=== PATIENT | male | born 1995 | race Caucasian/White ===

== ENCOUNTER 2018-07-11 11:28 | Emergency (ER) | payer SELFPAY ==
--- NOTE | 2018-07-11 11:21 | EDPHY ---
H & P Time Seen by Provider: 07/11/18 11:44 Constitutional: Initial Vital Signs Temperature (C) 36.7 C 07/11/18 11:38 Heart Rate 76 07/11/18 11:38 Respiratory Rate 18 07/11/18 11:38 Blood Pressure 140/76 H 07/11/18 11:38 O2 Sat (%) 97 07/11/18 11:38 O2 Delivery Mode Room Air Allergies/Adverse Reactions: No Known Allergies Allergy (Unverified 07/11/18 11:42) Home Medications: Medication Instructions Recorded NK [No Known Home Meds] 07/11/18 Medical Decision Making - Diagnostics Imaging Results: Imaging Impressions Brain MRI 07/11/18 11:52 Impression: 1. Mild sinus disease. 2. No acute infarct, acute hemorrhage, hydrocephalus or mass effect. 3. No enhancing lesions or definite mesial temporal sclerosis. Findings and recommendations discussed with Emergency Department physician, Dr. Victor M Thomas at 1340 hours on July 11, 2018. Final report concurs with initial preliminary interpretation. Imaging: Discussed imaging studies w/ call manager Radiologist, I viewed and interpreted images myself ED Course/Re-evaluation: CHIEF COMPLAINT: Seizure HISTORY OF PRESENT ILLNESS: The patient is a 23 y/o male arriving via EMS for a witnessed seizure today. The patient reports that as a child he had several febrile seizures. For several weeks he has had episodic dizziness. Today he was standing up playing a video game, when his girlfriend heard him fall to the ground and subsequently had two episodes of low-amplitude imaging that was worse in the beginning. The episodes were by a 10-15 second pause in activity. His girlfriend believes that the patient fell backwards. She denies any blue color to the patient's skin or lips. He did not bite his tongue or have urinary incontinence. The patient was then unconscious for around 5 minutes. The last thing that he remembers is looking at the TV screen and the first thing he remembers is the paramedics. He does not have any recollection of the event and did not have a feeling like he was about to lose unconsciousness prior the events. Due to the patient's possible seizure he was brought to the emergency department. He reports that he feels normal now. No fever, headache, body aches , lightheadedness, chest pain, heart palpitations, shortness of breath, cough, abdominal pain, urinary or bowel complaints, numbness, paresthesias. REVIEW OF SYSTEMS: A comprehensive 10 system review of systems is otherwise negative aside from elements mentioned in the history of present illness and medical decision making. PHYSICAL EXAM: HR, BP, O2 Sat, RR. Temp noted General Appearance: Alert, well hydrated, appropriate, and non-toxic appearing. Head: Atraumatic without scalp tenderness or obvious injury Eyes: Pupils equal, round, reactive to light and accommodation, EOMI, no trauma , no injection. Ears: Clear bilaterally, no perforation, normal landmarks Nose: Atraumatic, no rhinorrhea, clear. Throat: There is no erythema or exudates, no lesions, normal tonsils, mucus membranes moist. Neck: Supple, 2+ carotid upstroke, nontender, no lymphadenopathy. Respiratory: No retractions, no distress, no wheezes, and no accessory muscle use. Lungs are clear to auscultation bilaterally. Cardiovascular: Regular rate and rhythm, no murmurs, rubs, or gallops. Bilateral carotid, radial, dorsalis pedis, and posterior tibial pulses intact. Good capillary refill all extremities. Gastrointestinal: Abdomen is soft, nontender, non-distended, no masses, no rebound, no guarding, no peritoneal signs. Musculoskeletal: Normal active ROM of all extremities, atraumatic. Neurological: Alert, appropriate, and interactive. The patient has normal DTRs and non-focal cranial nerves, motor, sensory, and cerebellar exam. Skin: No rashes, good turgor, no nodules on palpation. Past medical history: Febrile seizures Past surgical history: Right shoulder surgery Family history: Denies Social history: Girlfriend at bedside, lives and works in [place] DIAGNOSTICS/PROCEDURES/CRITICAL CARE TIME: EKG: The 12 lead EKG was interpreted by myself as sinus rhythm with a rate of 88. See hard copy and/or "tracemaster" electronic copy for interpretation. Brain MRI: Mild sinus disease. No acute infarct, acute hemorrhage, hydrocephalus or mass effect. No enhancing lesions or definite mesial temporal sclerosis. Echo: No acute findings. DIFFERENTIAL DIAGNOSIS: The differential diagnosis for the patient's seizure included but was not limited to anoxic seizure, electrolyte abnormality, alcohol withdrawal, medication noncompliance, head injury, STORE CLERK structural abnormality, and break through seizure. MEDICAL DECISION MAKING: The patient is a 23 y/o male arriving via EMS for a witnessed seizure today.Today he was standing up playing a video game, when his girlfriend heard him fall to the ground and subsequently had two episodes of low-amplitude imaging that was worse in the beginning. The episodes were by a 10-15 second pause in activity. She denies any blue color to the patient's skin or lips. He did not bite his tongue or have urinary incontinence. The patient was then unconscious for around 5 minutes. He does not have any recollection of the event and did not have a feeling like he was about to lose unconsciousness prior the events. Patient will need a first-time seizure work up and a cardiac workup due to the possible syncope. Labs, EKG, echocardiogram, and brain MRI ordered; 1L IV NS administered. 1138: I interpreted patient's EKG as sinus rhythm with a rate of 88. 1239: Patient's labs reveal an anion gap, I suspect he did have a seizure due to these labs results. 1340: I spoke with Dr. Storey, radiologist, regarding patient's brain MRI. There are no acute findings. We are still waiting on the echo. 1412: I spoke with the wastewater technician who reports there are no acute findings. I have paged neurology as I suspect this patient had a first time seizure. 1413: Reassessed patient and discussed laboratory and imaging studies. I have discussed my suspicion that he had a first time seizure. I have also discussed plan for follow up with a neurologist, which he is comfortable with. 1415: I consulted with Dr. Calvin, neurologist, regarding this patient. There is no utility in being admitted at this time. He agrees to see this patient as an outpatient in his office. Patient can start seizure prophylaxis if he would like. 1419: Reassessed patient and discussed seizure prophylaxis medication. He does not want to start seizure medication. I have also discussed no driving or operating heavy machinery until he sees a neurologist. Return precautions provided; patient is comfortable with this plan. - Data Points Laboratory Results: Laboratory Results 07/11/18 11:42 07/11/18 11:42 07/11/18 07/11/18 07/11/18 11:57 11:42 11:42 WBC RBC Hgb Hct MCV MCH MCHC RDW Plt Count MPV Neut % (Auto) Lymph % (Auto) [place] % (Auto) Eos % (Auto) Baso % (Auto) Nucleat RBC Rel Count Absolute Neuts (auto) Absolute Lymphs (auto) Absolute Monos (auto) Absolute Eos (auto) Absolute Basos (auto) Absolute Nucleated RBC Immature Gran % Immature Gran # D-Dimer 0.39 ug/mLFEU ug/mLFEU (0.00-0.50) Sodium 142 mEq/L mEq/L (135-145) Potassium 4.8 mEq/L mEq/L (3.5-5.2) Chloride 107 mEq/L mEq/L (97-110) Carbon Dioxide 18 mEq/l L mEq/l (22-31) Anion Gap 17 mEq/L H mEq/L (6-14) BUN 12 mg/dL mg/dL (7-23) Creatinine 1.0 mg/dL mg/dL (0.7-1.3) Estimated GFR > 60 Glucose 108 mg/dL H mg/dL (70-100) Calcium 9.6 mg/dL mg/dL (8.5-10.4) POC Troponin I 0.01 ng/mL ng/mL (0.00-0.08) 07/11/18 11:42 WBC 8.27 10^3/uL 10^3/uL (3.80-9.50) RBC 5.00 10^6/uL 10^6/uL (4.40-6.38) Hgb 16.3 g/dL g/dL (13.7-17.5) Hct 47.9 % % (40.0-51.0) MCV 95.8 fL fL (81.5-99.8) MCH 32.6 pg pg (27.9-34.1) MCHC 34.0 g/dL g/dL (32.4-36.7) RDW 12.7 % % (11.5-15.2) Plt Count 297 10^3/uL 10^3/uL (150-400) MPV 10.3 fL fL (8.7-11.7) Neut % (Auto) 51.2 % % (39.3-74.2) Lymph % (Auto) 33.5 % % (15.0-45.0) [place] % (Auto) 11.0 % % (4.5-13.0) Eos % (Auto) 2.1 % % (0.6-7.6) Baso % (Auto) 1.1 % % (0.3-1.7) Nucleat RBC Rel Count 0.0 % % (0.0-0.2) Absolute Neuts (auto) 4.24 10^3/uL 10^3/uL (1.70-6.50) Absolute Lymphs (auto) 2.77 10^3/uL 10^3/uL (1.00-3.00) Absolute Monos (auto) 0.91 10^3/uL H 10^3/uL (0.30-0.80) Absolute Eos (auto) 0.17 10^3/uL 10^3/uL (0.03-0.40) Absolute Basos (auto) 0.09 10^3/uL 10^3/uL (0.02-0.10) Absolute Nucleated RBC 0.00 10^3/uL 10^3/uL (0-0.01) Immature Gran % 1.1 % % (0.0-1.1) Immature Gran # 0.09 10^3/uL 10^3/uL (0.00-0.10) D-Dimer Sodium Potassium Chloride Carbon Dioxide Anion Gap BUN Creatinine Estimated GFR Glucose Calcium POC Troponin I Medications Given: Discontinued Medications Sodium Chloride (Ns) 1,000 mls @ 0 mls/hr IV EDNOW ONE; Wide Open PRN Reason: Protocol Stop: 07/11/18 11:51 Last Admin: 07/11/18 12:00 Dose: 1,000 mls Point of Care Test Results: Chemistry 07/11/18 11:57 POC Troponin I 0.01 ng/mL ng/mL (0.00-0.08) Departure - Departure Disposition: Home, Routine, Self-Care Clinical Impression: Seizure Condition: Good Instructions: Nonepileptic Seizures (ED) Additional Instructions: 1. Do not drive until you have seen a neurologist. Do not operate any heavy machinery until you are seen by the neurologist. 2. Follow-up with a neurologist within 72 hours. Please call them today. 3. Return to the Emergency Department for severe headache, vomiting, vision changes, confusion, fever or other concerns. Referrals: Omer Calvin MD [Medical Doctor] - As per Instructions
[2018-07-11] MEDS ORDERED: NS 1,000 ML IV ONE (11:50)
[2018-07-11 11:57] LABS: PLATELET COUNT 297 10^3/uL (150-400)
[2018-07-11] MEDS ORDERED: GADOBUTROL 10 ML VIAL IVP ONE (12:31)
[2018-07-11 14:37] VITALS: BP 132/75
--- NOTE | 2018-07-11 14:37 | CPEKG ---
Test Reason : OPEN Blood Pressure : / mmHG Vent. Rate : 088 BPM Atrial Rate : 089 BPM P-R Int : 141 ms QRS Dur : 086 ms QT Int : 379 ms P-R-T Axes : -30 060 031 degrees QTc Int : 459 ms Sinus rhythm Confirmed by Victor M Thomas ([id number]) on 07/11/2018 2:36:37 PM Referred By: Victor M Thomas Confirmed By:Victor M Thomas
--- NOTE | 2018-07-11 18:15 | ECHO ---
[email or web address] [id number] Main: [phone] Echocardiography Examination Transthoracic Name: CARI GIBBONS MR#: [id number] Study Date: 07/11/2018 Study Time: 01:54 PM Date of : 1995 Age: 23 year(s) Height: 170.2 cm (67 in.) Weight: 74.84 kg (165 lb.) BSA: 1.86 m2 Gender: Male Examination: Echo Contrast: Image Quality: Adequate Rhythm: Heart Rate: BP: 126 mmHg/75 mmHg Indication: Seizure Procedure Staff Referring Physician: Chief Service Dispatcher: Magali Carter RDCS Reading Physician: Avel Pham MD Requesting Provider: Indication: Seizure Measurements Chambers AV/MV Label Value Normal Value Label Value Normal Value LVDd, 2D 5 cm (4.2cm - 5.9cm) AV PGmax 7 mmHg LVDs, 2D 3 cm (2.1cm - 4cm) AV PGmean 3 mmHg IVSd, 2D 1 cm (0.6cm - 1.1cm) AV Vmax 1.28 m/s LVPWd, 2D 0.9 cm (0.6cm - 1cm) MV E Vmax 1.05 m/s LVEF, BP 74 % (55% - 70%) MV A Vmax 0.52 m/s LVEF, 2D 70 % (54% - 74%) MV E/A 2.02 TAPSE 2.75 cm MV E/E' lateral 6.2 LADs, 2D 3.2 cm (3cm - 4cm) MV E/E' septal 8.8 (0.6 - 2.6) Additional Vessels MV E' septal 0.12 m/s Label Value Normal Value MV E' lateral 0.17 m/s AoAsc 3 cm MV E/E' mean 7.24 AoRoot, MM 3.3 cm (2.2cm - 3.7cm) MV E' mean 0.14 m/s Conclusions Normal echocardiographic study. Findings Patient: CARI GIBBONS Study Date: 07/11/2018 Page 1 of 2 01:54 PM Left Ventricle: Left ventricle is normal in size. Normal global systolic left ventricular function. The ejection fraction, measured by Simpsons method, is 74 %. EF range is estimated at 65 % - 70 %. Left ventricle wall thickness is normal. There are no regional wall motion abnormalities. Left ventricular diastolic function parameters are normal. IVS: The septum is intact. Right Ventricle: Normal size right ventricle. Right ventricular wall thickness is normal. Right ventricular systolic function is normal. Left Atrium: The left atrium is normal in size. IAS: Normal appearing atrial septum. Right Atrium: The right atrium is normal in size. Mitral Valve: Mitral valve appears structurally normal. Trivial mitral regurgitation. No mitral valve stenosis. Aortic Valve: Aortic leaflets exhibit normal cuspal separation. No aortic valve regurgitation. There is no aortic stenosis. The aortic valve is trileaflet. Tricuspid Valve: Tricuspid valve leaflets are normal in appearance and function. Trivial tricuspid regurgitation. No tricuspid valve stenosis. Pulmonary artery pressure normal. Pulmonic Valve: Pulmonic leaflets exhibit normal cuspal separation. Trivial pulmonic valve regurgitation is present. There is no pulmonic valve stenosis. Aorta: The aorta is normal. The aortic root size in M-mode measures 3.3 cm. The ascending aorta measures 3.0 cm. Aorta Measurements AoRoot, MM is 3.3 cm. Pericardium: No pericardial effusion. No pleural effusion present. Exam Details Procedure Ordered: Echo Procedure Status: Routine study Image Quality: Adequate Facility Location: Cardiac Echo 1 (No Signature Object) Patient: CARI GIBBONS Study Date: 07/11/2018 Page 2 of 2 01:54 PM [id number]
== END 2018-07-11 14:37 | disposition home or self-care (01) ==
DX: R56.9 Unspecified convulsions (principal); E86.9 Volume depletion, unspecified
CPT/HCPCS: 84484-ER; A9585

== ENCOUNTER → 2018-08-01 | Outpatient (CLI) | payer BC ==
--- NOTE | 2018-08-06 13:00 | CPEEG ---
[f rep st] ELECTROENCEPHALOGRAM DATE OF STUDY: 08/01/2018 DATE OF INTERPRETATION: 08/04/2018 INTERPRETATION: This EEG is abnormal due to the presence of generalized atypical spike and wave discharges. 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 The findings of this EEG were directly communicated to the patient's primary neurologic provider, Dr. Raphael Logan. REPORT: This EEG contains 10 Hz alpha activity over the posterior head regions. The background activity was normal and symmetric. The primary feature of this study was the presence of generalized atypical spike and wave discharges. These discharges typically had a frequency of 4 to 5 hertz with fairly regular morphology. The duration typically lasted 1 to 3 seconds. The patient was tested during discharges without any changes in awareness. There were no definite electrographic seizures or clinical events recorded. The patient became drowsy and fell asleep. During drowsiness and sleep, there was continued activation of generalized atypical spike and wave discharges. The findings of this EEG were directly communicated to the patient's primary neurologic provider, Dr. Raphael Logan. /[id number] MTDD
== END ==
LOC: EDSEX → FCPNEURO 13:41 → MERGE 13:41
PROVIDERS: ATTEND Psychiatry & Neurology Neurology
DX: R56.9 Unspecified convulsions (principal)